=== PATIENT | male | born 1985 | race Caucasian/White ===

== ENCOUNTER 2025-04-26 21:11 | Emergency (ER) | payer BC, OTHER ==
[~2025-04-26] VITALS: Ht 180.3 cm; Wt 75.0 kg
--- NOTE | 2025-04-26 22:26 | DVH ---
CLINICAL INDICATION: RIGHT SHOULDER PAIN, POSS. DISLOCATION TECHNIQUE: XY R SHOULDER 2+ VIEW XRAY COMPARISON: None FINDINGS/IMPRESSION: : Anterior glenohumeral dislocation with anterior/ inferior position of the right humeral head relative to the glenoid. Visualized portions of the right lung are clear. Overlying soft tissues are intact.
[2025-04-26] MEDS: KETOROLAC TROMETH 60MG/2ML VIAL IM ONE (22:29)
[2025-04-26] MEDS: ACETAMINOPHEN 325 MG TAB PO ONE (22:29)
[2025-04-26] MEDS: diazePAM 5 MG TAB PO ONE (22:29)
[2025-04-26 23:00] VITALS: PULSE 90; RESP 14; TEMP 98.6; O2SAT 97
[2025-04-26] MEDS: MIDAZOLAM HCL 2MG/2ML 2ml VIAL (1mg/ml) IV ONE ×2 (23:07→23:47)
[2025-04-26] MEDS: KETOROLAC TROMETH 30 MG/ML 1ML VIAL IV ONE (23:08)
[2025-04-26] MEDS: MIDAZOLAM HCL 2MG/2ML 2ml VIAL (1mg/ml) ONE (23:47)
--- NOTE | 2025-04-27 00:40 | DVH ---
CLINICAL INDICATION: post reduction TECHNIQUE: XY R SHOULDER 2+ VIEW XRAY COMPARISON: XY R SHOULDER 2+ VIEW XRAY on DOS: 04/26/25 FINDINGS/IMPRESSION: : Normal glenohumeral articulation status post interval reduction of anterior shoulder dislocation. There is no evidence of acute fracture or dislocation. Soft tissues are unremarkable.
--- NOTE | 2025-04-27 01:24 | ED.PDOC ---
History of Present Illness HPI Comments 39-year-old male is brought in by ambulance for chief complaint of right shoulder pain and deformity, with the associated decreased range of motion. Patient reports suspicion on dislocating his right shoulder after lifting a blanket over his head in the jerking motion, earlier, this evening. History of previous right shoulder dislocation in the past. Patient arrived in sling provided by EMS EN route. Denial of any further acute symptoms, such as numbness, tingling, or weakness REVIEW OF SYSTEMS: General: No fever, no chills, or fatigue HEENT: No sore throat, no earache, no congestion, no neck pain. Cardiac: No chest pain. No palpitations. Lungs: No shortness of breath, no cough. GI: No nausea, no vomiting, no diarrhea, no constipation, no abdominal pain : No dysuria, frequency, or urgency. No hematuria. Musculoskeletal: Right shoulder pain and deformity, no joint swelling, no extremity edema. Skin: No rash, no itching. Neuro: No headache, no dizziness, no weakness (And as stated in HPI) PHYSICAL EXAM: General: Awake, alert and oriented. No acute distress. Skin: Skin in warm, dry and intact. Appropriate color for ethnicity. HEENT: The head is normocephalic and atraumatic. Conjunctivae are clear without exudates or hemorrhage. Sclera is non-icteric. Eyelids are normal in appearance without swelling or lesions. Oral mucosa is pink and moist Neck: The neck is supple with normal range of motion. No JVD. Cardiac: Heart rate and rhythm are normal. No murmurs, gallops, or rubs are auscultated. Respiratory: No signs of respiratory distress. Lung sounds are clear in all lobes bilaterally without rales, rhonchi, or wheezes. Abdominal: Abdomen is soft, non-tender without distention, guarding or rigidity. Bowel sounds are present and normoactive in all four quadrants. Extremities: Right shoulder shows obvious deformity in the upper deltoid area. Lower extremities without edema. Neurological: The patient is awake, alert and oriented to person, place, and time with normal speech. Speech is clear. There is no facial asymmetry. Psychiatric: Appropriate mood and affect. Good judgement and insight. Chief Complaint: Upper Extremity Time Seen by MD: 21:58 Reviewed Notes: Nurses Notes, Medications, Allergies Allergies: Coded Allergies: NO KNOWN ALLERGIES (Unverified , 04/26/25) Information Source: Patient Mode of Arrival: EMS Severity: Moderate Timing: Hours Duration: Since onset Prehospital treatment: Treatment (Sling) Past Medical History PAST MEDICAL HISTORY: Denies Surgical History: Denies all surgeries Family History Family History: Unknown Social History Smoker: Non-Smoker Alcohol: Denies ETOH Use Drugs: Denies Drug Use Lives In: Home Was a procedure done? Was a procedure done?: Yes Sedation Sedation?: No Informed consent obtained: Yes Reduction Indication: Dislocation (Right shoulder) Sedation: Consents obtained Intra-articular anesthetic shawna: No Post-reduction x-ray show: Reduction, Good Alignment Informed consent obtained: Yes Risks/benefits/alt described: Yes Differential Dx Considerations may include: Shoulder fracture, rotator cuff injury, neurovascular injury, shoulder dislocat ion X-Ray, Labs, Meds, VS Vital Signs Date Time Temp Pulse Resp B/P (MAP) Pulse Ox O2 Delivery O2 Flow Rate FiO2 04/27/25 01:28 77 20 107/63 (78) 97 04/26/25 23:00 90 14 97 Room Air* 0 21 04/26/25 23:00 98.6 90 14 103/70 (81) 97 98.6 04/26/25 21:15 98.3 116 17 186/86 99 98.3 Current Medications Medications (Trade) Dose Ordered Sig/Kimi Route Start Time Stop Time Status Last Admin Diazepam (Valium Tablet) 5 mg ONCE ONCE PO 04/26/25 22:00 04/26/25 22:01 DC 04/26/25 22:29 Ketorolac Tromethamine (Toradol Injection) 60 mg ONCE ONCE IM 04/26/25 22:00 04/26/25 22:43 DC 04/26/25 22:29 Acetaminophen (Tylenol Tablet) 1,000 mg ONCE ONCE PO 04/26/25 22:00 04/26/25 22:01 DC 04/26/25 22:29 Midazolam HCl (Versed Injection) 2 mg ONCE ONCE IV 04/26/25 22:45 04/26/25 22:46 DC 04/26/25 23:07 Ketorolac Tromethamine (Toradol Injection) 15 mg ONCE ONCE IV 04/26/25 22:45 04/26/25 22:46 DC 04/26/25 23:08 Midazolam HCl (Versed Injection) 2 mg ONCE ONCE IV 04/26/25 23:23 04/26/25 23:46 DC 04/26/25 23:[address] [address] Ph: [phone] DIAGNOSTIC IMAGING Diagnostic Imaging Report : [id number] Signed PATIENT: ZARA CEVALLOS ACCT: [id number] UNIT: [id number] : 1985 LOC: ER ROOM / BED: / AGE / SEX: 39 / M ADM STATUS: REG ER SERVICE [id number] ORDERING PHYSICIAN: WHITNEY HERBERT MD PROCEDURE(s): RSHD2 - R SHOULDER 2+ VIEW XRAY REASON: post reduction ORDER NUMBER(s): [id number], ACCESSION NUMBER(s): [id number] CLINICAL INDICATION: post reduction TECHNIQUE: XY R SHOULDER 2+ VIEW XRAY COMPARISON: XY R SHOULDER 2+ VIEW XRAY on DOS: 04/26/25 FINDINGS/IMPRESSION: : Normal glenohumeral articulation status post interval reduction of anterior shoulder dislocation. There is no evidence of acute fracture or dislocation. Soft tissues are unremarkable. ATED BY: MARCOS STAFFORD MD DICTATED DATE/TIME: 04/27/2537 SIGNED BY: MARCOS STAFFORD MD SIGNED DATE/TIME: 04/27/2537 CC: [address] [address] Ph: [phone] DIAGNOSTIC IMAGING Diagnostic Imaging Report : [id number] Signed PATIENT: ZARA CEVALLOS ACCT: [id number] UNIT: [id number] : 1985 LOC: ER ROOM / BED: / AGE / SEX: 39 / M ADM STATUS: REG ER SERVICE 29 ORDERING PHYSICIAN: WHITNEY HERBERT MD PROCEDURE(s): RSHD2 - R SHOULDER 2+ VIEW XRAY REASON: RIGHT SHOULDER PAIN, POSS. DISLOCATION ORDER NUMBER(s): [id number], ACCESSION NUMBER(s): [id number] CLINICAL INDICATION: RIGHT SHOULDER PAIN, POSS. DISLOCATION TECHNIQUE: XY R SHOULDER 2+ VIEW XRAY COMPARISON: None FINDINGS/IMPRESSION: : Anterior glenohumeral dislocation with anterior/ inferior position of the right humeral head relative to the glenoid. Visualized portions of the right lung are clear. Overlying soft tissues are intact. ATED BY: CASSIE FLORES MD DICTATED DATE/TIME: 04/26/252223 SIGNED BY: CASSIE FLORES MD SIGNED DATE/TIME: 04/26/252223 CC: Time of 1ST Reevaluation: 01:22 Reevaluation 1ST: Unchanged Patient Education/Counseling: Treatment, Need For Follow Up Family Education/Counseling: Treatment, Need For Follow Up SEPSIS Sepsis Screen Date sepsis recognized/suspect: Apr 26, 2025 Time Sepsis recognized/suspect: 2299 Recent Procedure: No On Antibiotic Therapy: No Respiratory Rate >20: No Heart Rate >90: No Temp<36 C (96.8 F) or >38.3 C: No SBP <90 or MAP <65 mmHG: No New Acute Mental Status Change: No Is the patient on CPAP, BIPAP,: No Physician Orders R Shoulder 2+ View Xray (04/26/25 21:30) R Shoulder 2+ View Xray (04/26/25 23:37) Vital Signs Date Time Temp Pulse Resp B/P (MAP) Pulse Ox O2 Delivery O2 Flow Rate FiO2 04/27/25 01:28 77 20 107/63 (78) 97 04/26/25 23:00 90 14 97 Room Air* 0 21 04/26/25 23:00 98.6 90 14 103/70 (81) 97 98.6 04/26/25 21:15 98.3 116 17 186/86 99 98.3 Medications Medications Dose Ordered Sig/Kimi Route Start Time Stop Time Status Last Admin Dose Admin Acetaminophen 1,000 mg ONCE ONCE PO 04/26/25 22:00 04/26/25 22:01 DC 04/26/25 22:29 Diazepam 5 mg ONCE ONCE PO 04/26/25 22:00 04/26/25 22:01 DC 04/26/25 22:29 Ketorolac Tromethamine 15 mg ONCE ONCE IV 04/26/25 22:45 04/26/25 22:46 DC 04/26/25 23:08 Ketorolac Tromethamine 60 mg ONCE ONCE IM 04/26/25 22:00 04/26/25 22:43 DC 04/26/25 22:29 Midazolam HCl 2 mg ONCE ONCE IV 04/26/25 22:45 04/26/25 22:46 DC 04/26/25 23:07 Midazolam HCl 2 mg ONCE ONCE IV 04/26/25 23:23 04/26/25 23:46 DC 04/26/25 23:47 Departure 1 Departure Time of Disposition: : Impression: Primary Impression: Dislocation of right shoulder joint Disposition: HOME / SELF CARE / HOMELESS Additional Instructions: ED DISCHARGE INSTRUCTIONS Instructions: Please read all instructions provided in this packet carefully. Keep arm in shoulder immobilizer until you follow up with the primary care provider or therapeutic sales specialist. Although you have been discharged from the Emergency Department, this does not mean that you have a "clean bill of health". No definitive diagnosis for your symptoms has been made today. It is possible that you are in the process of developing a serious illness. This is why you must return to the ED without fail if any new or worsening symptoms (especially if your symptoms include chest pain, trouble breathing, abdominal pain, fever, headache, confusion, trouble seeing, or trouble walking) It is also very important that you see a primary care provider (PCP) within the next 3-5 days to follow up. If you are unable to get an appointment, return to the ED for re-evaluation. Comments MDM: 39-year-old male status post successful reduction of right anterior shoulder dislocation. Patient placed in shoulder immobilizer, advised prompt follow up with PCP or Orthopedics. Extensive evaluation was performed in attempt to identify or rule out: (See differential diagnosis section) The following tests were ordered, and results were reviewed by me and discussed with patient: (See diagnostic results section) The following test were independently interpreted by me: N/A I reviewed and agreed with the following test results read by other providers: Right shoulder x-rays I reviewed the following notes from the pt's past medical encounters: N/A Additional information was gathered from interviewing the following independent historians: N/A Discussion of management or test interpretation with external physician/other qualified health hemodialysis patient care specialist: N/A Addressed [ ]one or more chronic illnesses with severe exacerbation, progression, or side effects of treatment: [ ]an acute or chronic illness that poses a threat to life or bodily function: [ ] Decision regarding hospitalization or escalation of hospital level of care: Risk and benefits of admission for further treatment of patient's condition was considered. Due to patient's current clinical condition, high risk of decline and poor outcome if discharged and need for further inpatient management and monitoring, patient will be admitted to the hospital. Drug therapy requiring intensive monitoring for toxicity: N/A Parenteral controlled substances: N/A Decision regarding elective major surgery with identified patient or procedure risk factors: N/A Decision regarding emergency major surgery: N/A Decision not to resuscitate or to de-escalate care because of poor prognosis: N/A Diagnosis or treatment significantly limited by social determinants of health: N/A Decision regarding hospitalization or escalation of hospital level of care: Risks and benefits of admission for further treatment of patient's condition was considered however due to patient's stable condition patient will be discharged to follow up closely or return to care for worsening of condition or inability to follow up. Critical Care Note Critical Care Time?: No Stability Stability form required: No Heart Score Heart Score: Heart Score Response (Comments) Value History N/A 0 EKG N/A 0 Age N/A 0 Risk Factors N/A 0 Troponin N/A 0 Total 0 I personally scribed for WHITNEY HERBERT MD ([email or web address]) on 04/27/25 at 04:56. Electronically submitted by Chris Simms ([email or web address]). WHITNEY HERBERT MD Apr 27, 2025 01:24
[2025-04-27 01:28] VITALS: BP 107/63; PULSE 77; RESP 20; O2SAT 97
== END 2025-04-27 01:45 | disposition home or self-care (01) ==
LOC: ER 21:11 → EDBD 21:11 → ER 04-27 01:45
DX: S43.014A Anterior dislocation of right humerus, initial encounter (principal); X50.0XXA Overexertion from strenuous movement or load, initial encounter; Y93.89 Activity, other specified; Y92.89 Other specified places as the place of occurrence of the external cause; Y99.8 Other external cause status
CPT/HCPCS: 23650; 73030; 96372; 96374; 96375; 99284; J1885; J2250